=== PATIENT | female | born 1950 | race Caucasian/White ===

== ENCOUNTER → 2017-08-17 09:53 | Outpatient (CLI) | payer MEDICARE, SELFPAY ==
[2017-08-17 10:56] LABS: Erythrocyte Sedimentation Rate 64 mm/hr (0-30)
[2017-08-19 09:57] LABS: Peripheral Smear Review Scanned Result
== END ==
PROVIDERS: Visit Provider Family Medicine
DX: R70.0 Elevated erythrocyte sedimentation rate (principal); D64.9 Anemia, unspecified
CPT/HCPCS: 36415; 85651

== ENCOUNTER → 2018-01-31 14:32 | Outpatient (POV) | payer MEDICARE, SELFPAY | PROVIDERS: PCP Family Medicine | DX: Z00.00 Encounter for general adult medical examination without abnormal findings (principal) ==

== ENCOUNTER → 2018-02-07 13:34 | Outpatient (POV) | payer MEDICARE, SELFPAY | PROVIDERS: PCP Family Medicine | DX: Z00.00 Encounter for general adult medical examination without abnormal findings (principal) ==

== ENCOUNTER → 2018-08-20 15:13 | Outpatient (POV) | payer MEDICARE, SELFPAY | PROVIDERS: Visit Provider Nurse Practitioner Acute Care | DX: Z00.00 Encounter for general adult medical examination without abnormal findings (principal) ==

== ENCOUNTER 2018-11-27 09:00 | Outpatient (RCR) | payer MEDICARE, SELFPAY ==
--- NOTE | 2018-11-07 17:35 | HMH.PTOPEV ---
PT Outpatient Evaluation Rehab PT Outpatient Evaluation Start: 11/07/18 16:38 Freq: Status: Active Protocol: Document 11/07/18 16:38 MELITON (Rec: 11/07/18 17:35 NAVEENGURVINDER [id number]) Electronically Signed By Reno Perez, PT 11/07/18 16:38 Outpatient Therapy Subjective History Subjective History Patient is a 68 year old female presenting to outpatient PT with reports of chronic bilateral cervical spine pain of insidious onset starting approximately 1 year ago. Most recent diagnostics indicate multi-level DDD per patient report. Her main complaint is pain with cervical rotation R=L causing difficulty with driving and reading/desk work. Pt reports hx of BUE vascular issues which required bypass surgery 08/10/18. Comorbidities include giant cell arteritis/vascular disease. Did not perform MMT secondary to BUE bypass surgery. Pt reports intermittent numbness in bilateral hands not associated with onset of cervical pain. Chief Complaint Pain Symptom Type Ache Symptoms Relieved By Rest/Positioning,Prescription Meds Symptoms Aggravated By Physical Activity Prior Functional Limitations None Current Functional Limitations Desk Work/Reading,Driving Symptom Description Intermittent Level of pain today (0-10) 0 Pain scale - at its best (0-10) 0 Pain scale - at its worst (0-10) 4 Cervical Eval Palpation Cervical Muscles R Cervical Paraspinal,L Cervical Paraspinal,R CT Junction,L CT Junction,R Upper Trapezius,L Upper Trapezius Cervical/Thoracic Palpation Findings Tenderness Posture Head/C-Spine Posture Sitting Position C-Spine Flattened Flexibility Deficits Upper Trapezius Muscle Length (R) Mild Tightness,(L) Mild Tightness Levaetor Scapulae Muscle Length (R) Mild Tightness,(L) Mild Tightness Scalene Group Muscle Length (R) Mild Tightness,(L) Mild Tightness,(R) Moderate Tightness,(L) Moderate Tightness
== END 2018-11-27 09:05 | disposition home or self-care (01) ==
LOC: PT 09:00
PROVIDERS: Visit Provider Family Medicine
DX: M50.30 Other cervical disc degeneration, unspecified cervical region (principal); M53.82 Other specified dorsopathies, cervical region
CPT/HCPCS: 97110; 97163

== ENCOUNTER 2019-01-22 09:00 | Outpatient (RCR) | payer MEDICARE, SELFPAY ==
--- NOTE | 2019-01-15 11:51 | HMH.SLVOIC ---
Speech & Language Evaluation Speech/Language Voice Evaluation Start: 01/15/19 10:57 Freq: once Status: Complete Protocol: Document 01/15/19 10:57 ODALIS (Rec: 01/15/19 11:51 ODALIS [id number]) Voice Assessment/Goals/Plan Assessment/Problems Date of Evaluation: 01/15/19 Assessment/Problems Bowing of vocal cord Does Patient Qualify for Service Yes Qualify/Failure Comment Patient exhibits breathy vocal quality and dipliphonia while speaking Recommendations Pt will be seen # times/week 1 for # weeks 6 Plan Anticipate reaching STG in # weeks 4 Anticipate reaching LTG in # weeks 6 Pt/Guardian verbally ack understanding Yes of dx/prognosis/goals G -code Required Yes G-CODES ST Current Status [id number] ST Current Status Modifier CJ-At least 20% but less than 40% impaired, limited or restricted ST Goal Status [id number] ST Goal Status Modifier CI-At least 1% but less than 20% impaired, limited or restricted Short Term Goals Use easy initiation of phonation for Yes prod of best voice 8/10 trials Sustain phonation of 'ah' at comf. pitch 20 8/10 trials # secs Inc loudness level wo inc pitch 8/10 Yes trials Inc easy initial of phonation using best Yes vocal quality habitually 8/10 Residential Goals Improve overall quality to increase/ Yes improve communication with family/ friends. SL Voice & Resonance Eval Communication/Cognition Orientation Name,Place,Day,Date,Year Ablility to follow commands 2-step commands Intelligibility Fair Barriers to Communication Breathy vocal quality Oral-Motor Structure/Function Structure/Function Yes: Buccal Labial Lingual Mandibular Velar Facial Symmetry Symmetrical Laryngeal Function STRNG: Throat Clearing WEAK: Voluntary Cough Dentition Good Dentition Resp Status/History Resp status/hx a concern? Yes Oxygen Delivery Method Room Air Mouth breather No Hx multiple intubations x 12 Most recent extubation date 08/10/18 Voice Voice Pitch Moderately High Voice Loudness Moderately Soft/Quiet Voice Phonatory-based Quality Breathy,Shrill Sustain AH #secs (15-20=NML) 14.6 Sustain S #secs (20-25=NML) 12.01
== END 2019-01-22 09:05 | disposition home or self-care (01) ==
LOC: ST 09:00
PROVIDERS: Visit Provider Otolaryngology
DX: J38.3 Other diseases of vocal cords (principal)
CPT/HCPCS: 92507; 92524

== ENCOUNTER → 2019-02-25 16:46 | Outpatient (CLI) | payer MEDICARE, SELFPAY ==
--- NOTE | 2019-02-25 16:51 | MM_ITS ---
PROCEDURE: MM DIG SCREENING MAMM BI W/CAD CLINICAL INDICATION: SCREENING There is no personal or family history of breast cancer. COMPARISON: DMDXUAVR DIG MAMM-DX UNI ADD VIEWS-RT from 09/14/2015 DMSB DIG MAMM-SCREEN DIAMOND W/CAD from 09/08/2016 DMDXUAVL DIG MAMM-DX UNI A/VWS-LT W/CAD from 10/26/2016 TECHNIQUE: Standard CC and MLO images were obtained. R2 CAD reviewed. FINDINGS: There is mildly dense and heterogenic parenchymal pattern somewhat lessening the sensitivity of mammography. There is stable nodularity in the left breast centrally there is a biopsy clip left breast. There is no new or suspicious lesion in either breast and no suspicious microcalcifications. IMPRESSION: Diffusely dense parenchymal pattern with no suspicious lesions seen BI-RAD Category: 2 Benign Finding(s) FOLLOW-UP: 1YR 1 Year Follow-up (A letter has been sent to the patient regarding results of the study.) Dictated by: Dr. Michele Lindsey MD 02/27/2019 08:[address] Michele Lindsey MD in [facility] 02/27/2019 08:36
== END ==
PROVIDERS: PCP Obstetrics & Gynecology; Visit Provider Obstetrics & Gynecology
DX: Z12.31 Encounter for screening mammogram for malignant neoplasm of breast (principal)
CPT/HCPCS: 77067

== ENCOUNTER 2019-06-13 11:00 | Outpatient (RCR) | payer MEDICARE, SELFPAY | END 2019-06-13 11:05 | disposition home or self-care (01) | LOC: PT 11:00 | PROVIDERS: PCP Obstetrics & Gynecology; Visit Provider Podiatrist Foot & Ankle Surgery | DX: M76.61 Achilles tendinitis, right leg (principal) | CPT/HCPCS: 97010; 97014; 97033; 97035; 97110; 97163; G0283 ==

== ENCOUNTER → 2019-07-31 14:10 | Outpatient (POV) | payer MEDICARE, SELFPAY | DX: Z00.00 Encounter for general adult medical examination without abnormal findings (principal) ==

== ENCOUNTER → 2019-08-07 14:58 | Outpatient (POV) | payer MEDICARE, SELFPAY | DX: Z00.00 Encounter for general adult medical examination without abnormal findings (principal) ==

== ENCOUNTER → 2019-08-07 15:00 | Outpatient (POV) | payer MEDICARE, SELFPAY | DX: Z00.00 Encounter for general adult medical examination without abnormal findings (principal) ==

== ENCOUNTER → 2019-08-21 15:37 | Outpatient (POV) | payer MEDICARE, SELFPAY | DX: Z00.00 Encounter for general adult medical examination without abnormal findings (principal) ==

== ENCOUNTER → 2019-10-02 14:03 | Outpatient (POV) | payer MEDICARE, SELFPAY | PROVIDERS: PCP Family Medicine | DX: Z00.00 Encounter for general adult medical examination without abnormal findings (principal) ==

== ENCOUNTER → 2019-12-04 15:08 | Outpatient (POV) | payer MEDICARE, SELFPAY | PROVIDERS: PCP Family Medicine | DX: Z00.00 Encounter for general adult medical examination without abnormal findings (principal) ==

== ENCOUNTER → 2020-01-10 10:14 | Outpatient (CLI) | payer MEDICARE, SELFPAY ==
[2020-01-10 10:54] LABS: Basophils # 0.1 K/mm3 (0-0.2); Basophils % 0.8 % (0.1-2.0); Eosinophils # 0.1 K/mm3 (0.0-0.4); Eosinophils % 1.5 % (0.1-12.0); Hematocrit 39.5 % (37.0-47.0); Hemoglobin 12.9 g/dL (12.2-16.2); Lymphocytes # 2.8 K/mm3 (0.7-4.5); Mean Corpuscular HGB Conc 32.8 g/dL (31.8-35.4); Mean Corpuscular Hemoglobin 28.8 pg (27.0-31.2); Mean Corpuscular Volume 87.8 fl (81-99); Mean Platelet Volume 7.9 fl (7.4-10.4); Monocytes # 0.3 K/mm3 (0.1-1.0); Monocytes % 3.4 % (1.7-9.3); Neutrophils % 64.3 % (37.0-80.0); Platelet Count 346 K/mm3 (142-424); Red Blood Count 4.49 M/mm3 (4.20-5.40); Red Cell Distribution Width 13.3 % (11.5-17.5); White Blood Count 9.3 K/mm3 (4.8-10.8)
[2020-01-10 11:32] LABS: INR 0.96 (0.9-1.1); Prothrombin Time 9.9 seconds (9.4-11.8)
[2020-01-10 12:08] LABS: Chloride 103 mmol/L (98-107); Potassium 4.4 mmoL/L (3.5-5.1); Sodium 137 mmol/L (136-145)
[2020-01-10 12:10] LABS: Blood Urea Nitrogen 11 mg/dl (7-17); Estimated Glomerular Filt Rate 83 ml/min (>60); GFR (African American) 101 ML/MIN (>60)
[2020-01-10 12:11] LABS: Anion Gap 17.4 mEq/L (5-15); Carbon Dioxide 21 mmol/L (22.0-30.0); Glucose 100 mg/dl (74-100)
== END ==
PROVIDERS: Visit Provider Family Medicine
DX: Z01.818 Encounter for other preprocedural examination (principal); Z51.81 Encounter for therapeutic drug level monitoring
CPT/HCPCS: 36415; 80048; 85025; 85610; 85730

== ENCOUNTER → 2020-01-29 13:01 | Outpatient (POV) | payer MEDICARE, SELFPAY | DX: Z00.00 Encounter for general adult medical examination without abnormal findings (principal) ==

== ENCOUNTER → 2020-02-05 13:35 | Outpatient (POV) | payer MEDICARE, SELFPAY | DX: Z00.00 Encounter for general adult medical examination without abnormal findings (principal) ==

== ENCOUNTER → 2020-03-11 13:49 | Outpatient (POV) | payer MEDICARE, SELFPAY | DX: Z00.00 Encounter for general adult medical examination without abnormal findings (principal) ==

== ENCOUNTER → 2020-08-18 13:17 | Outpatient (CLI) | payer MEDICARE, SELFPAY ==
--- NOTE | 2020-08-18 13:20 | MM_ITS ---
PROCEDURE: MM DIG SCREENING MAMM BI W/CAD Digital Breast Tomosynthesis Included CLINICAL INDICATION: SCREENING There is no personal or family history of breast cancer. There has been previous biopsy on each breast for benign disease. COMPARISON: MG DMSB DIG MAMM-SCREEN DIAMOND W/CAD from 09/08/2016 MG DMDXUAVL DIG MAMM-DX UNI A/VWS-LT W/CAD from 10/26/2016 MG MM DIG SCREENING MAMM BI W/CAD from 02/25/2019 TECHNIQUE: Standard CC and MLO images and 3D Tomosynthesis was obtained. R2 CAD reviewed. FINDINGS: Moderate somewhat heterogenic fibroglandular densities are seen in the central portions of both breasts. There is a biopsy clip left breast. Minimal post biopsy scarring near the deep of the 2 biopsy clips left breast. There are couple of benign-appearing calcifications left breast. There are stable small nodular lesions central portion left breast. There is no suspicious lesion and no suspicious microcalcifications. IMPRESSION: Stable exam with no suspicious lesions seen BI-RAD Category: 2 Benign Finding(s) FOLLOW-UP: 1YR 1 Year Follow-up (A letter has been sent to the patient regarding results of the study.) Dictated by: Dr. Michele Lindsey MD 08/23/2020 14:03 Dr. Michele Lindsey MD in [facility] 08/23/2020 14:03
--- NOTE | 2020-08-18 13:21 | XR_ITS ---
PROCEDURE: XR DEXA AXIAL SKELETON CLINICAL HISTORY: POST MENOPAUSAL COMPARISON: No exams were available for comparison FINDINGS: The right hip BMD is 0.808 with a T-score of -0.4. The left hip BMD is 0.834 with a T-score of -0.9. The lumbar spine BMD is 1.048 with a T-score of 0.0. IMPRESSION: This patient is considered normal according to the World Health Organization criteria. Fracture risk is low. Based on these results a follow-up exam is recommended in 2 year. Dictated by: Jovanny Roy MD 08/18/2020 20:38 Jovanny Roy MD in [facility] 08/19/2020 06:54
== END ==
PROVIDERS: PCP Family Medicine; Visit Provider Physician Assistant
DX: Z12.31 Encounter for screening mammogram for malignant neoplasm of breast (principal); Z78.0 Asymptomatic menopausal state
CPT/HCPCS: 77063; 77067; 77080

== ENCOUNTER → 2020-12-16 13:47 | Outpatient (POV) | payer MEDICARE, SELFPAY | DX: Z00.00 Encounter for general adult medical examination without abnormal findings (principal) ==

== ENCOUNTER → 2021-02-16 10:37 | Outpatient (CLI) | payer MEDICARE, SELFPAY ==
--- NOTE | 2021-02-16 10:40 | US_ITS ---
PROCEDURE: US EXTREMITY RT LIMITED CLINICAL INDICATION: GROIN PAIN RT COMPARISON: No exams were available for comparison FINDINGS: There are few small lymph nodes in the right groin. No enlarged nodes are evident. No abnormal fluid collection. No bowel containing hernia evident. IMPRESSION: Unremarkable ultrasound of the right groin Dictated by: Jovanny Roy MD 02/16/2021 12:31 Jovanny Roy MD in [facility] 02/16/2021 12:31
--- NOTE | 2021-02-16 10:42 | XR_ITS ---
PROCEDURE: XR HIP RT 2-3V W/PELVIS CLINICAL INDICATION: HIP PAIN ,RT COMPARISON: No exams were available for comparison FINDINGS: AP view of the pelvis shows bilateral osteoarthritic changes of the hips. No acute fracture or dislocation is evident. No lytic or blastic change. Hypertrophic changes are present involving the lateral aspect of the acetabular roof on both sides right slightly greater than left. This could result and femoral acetabular impingement in the appropriate clinical setting. IMPRESSION: Mild osteoarthritic changes of the hips with prominent hypertrophic changes along the lateral aspect of the acetabular roof on both sides slow right slightly greater than Dictated by: Jovanny Roy MD 02/16/2021 11:39 Jovanny Roy MD in [facility] 02/16/2021 11:39
== END ==
PROVIDERS: PCP Family Medicine; Visit Provider Nurse Practitioner Family
DX: M25.551 Pain in right hip (principal); R10.31 Right lower quadrant pain
CPT/HCPCS: 73502; 76882

== ENCOUNTER 2021-05-03 12:34 | Emergency (ER) | payer MEDICARE, SELFPAY ==
[2021-05-03] VITALS (21 sets, daily range): BP systolic 145–202; BP diastolic 58–91; PULSE 74–88; RESP 17–20; TEMP 37.1; O2SAT 95–98; BMI 29.9
--- NOTE | 2021-05-03 12:31 | ECG_ITS ---
APPROVED REPORT Exam: Resting ECG HR:86 bpm ECG Measurements Heart Rate 86 AXES IA 124 P 46 QRSd 134 QRS 26 QT 382 T 6 QTc 457 Conclusion Normal sinus rhythm Right bundle branch block Abnormal ECG Electronically signed by : Lavell Stephen MD 05/04/2021 12:17:11
--- NOTE | 2021-05-03 13:08 | CT_ITS ---
Procedure: CT ANGIO UE LT CLINICAL HISTORY: pain, multiple vascular surgery, hx giant cell art COMPARISON: No exams were available for comparison TECHNIQUE: IV Contrast: 100ml Isovue 370 Axial images obtained with sagittal and coronal reformats. All CT scans at the facility use one or more dose reduction, viz: automated exposure control, ma/kV adjustment per patient size (including targeted exams where dose is matched to indication, i.e. head), or iterative reconstruction technique. FINDINGS: The aortic arch has an unremarkable appearance. Distal to the origin of the left vertebral artery there is some luminal irregularity the left subclavian artery with approximately 25 percent narrowing. There is occlusion the left axillary artery at its origin from the subclavian artery with a prominent circumflex artery which may also be occluded distally. There is reconstitution of the proximal aspect of the left brachial artery at the proximal humeral region. Numerous collateral vessels are present in the arm. Surgical clips are present in the left axillary region and distal humeral area. A mildly prominent vascular structure is present near the region of the proximal surgical clips and may represent a vein graft. This does not appear patent to the distal aspect of the clips at the mid humeral region. There is a mild amount of edema in the left axillary region. There is some nonspecific areas of enhancement in the left biceps muscle possibly due to some venous puddling. IMPRESSION: 1. Occlusion of the left axillary artery with reconstitution of the brachial artery in its mid aspect. 2. Postsurgical changes in the left axilla suspected prior graft placement which does not appear patent. Please correlate with patient's surgical history. 3. Mild amount of edema in the left axillary region. Dictated by: Jovanny Roy MD 05/03/2021 15:58 Jovanny Roy MD in [facility] 05/03/2021 15:58
--- NOTE | 2021-05-03 13:08 | XR_ITS ---
PROCEDURE: XR CHEST PORTABLE CLINICAL HISTORY: chest pain COMPARISON: CR CXR CHEST(2 VIEWS-NOT PORTABLE) from 08/04/2016 FINDINGS: The cardiomediastinal silhouette and pulmonary vascularity are within normal limits. The lungs are clear without infiltrates, suspicious nodules, or pleural effusions. Surgical clips are present in the left axillary region. IMPRESSION: No acute findings. Dictated by: Jovanny Roy MD 05/03/2021 17:02 Jovanny Roy MD in [facility] 05/03/2021 17:02
--- NOTE | 2021-05-03 13:12 | CT_ITS ---
PROCEDURE: CT ANGIO CHEST PE PROTOCOL CLINCIAL INDICATION: chest pain, new rbbb COMPARISON: No exams were available for comparison TECHNIQUE: IV Contrast: 70ML Isovue 370 Axial images obtained with sagittal and coronal reformats. All CT scans at the facility use one or more dose reduction, viz: automated exposure control, ma/kV adjustment per patient size (including targeted exams where dose is matched to indication, i.e. head), or iterative reconstruction technique. FINDINGS: HEART AND MEDIASTINAL STRUCTURES: No evidence of pulmonary embolus or aortic aneurysm. Part of the main pulmonary artery is obscured by motion artifact. No mediastinal or hilar mass or adenopathy. LUNGS AND PLEURAL SPACES: In the right apex there is a 3 mm subpleural nodule. 2 mm nodule present in the left apex. Mosaic attenuation noted in the lower lobes nonspecific. Some of this may be due to dependent changes. BONY STRUCTURES: Degenerative changes thoracic spine with thoracic scoliosis convex right.. UPPER ABDOMEN: Hiatal hernia. Fatty liver ADDITIONAL FINDINGS: Surgical clips are present in the left axilla. There is occlusion the left axillary artery. There is a prominent left circumflex scapular artery. There is edema in the left axillary region. IMPRESSION: 1. No definite pulmonary embolus. The main pulmonary artery is somewhat obscured secondary to motion artifact. 2. Mosaic attenuation in the lower lobes. This is nonspecific and may be seen with small airway disease, edema, or infection. 3. Hiatal hernia 4. Occluded left brachial artery proximally Dictated by: Jovanny Roy MD 05/03/2021 15:35 Jovanny Roy MD in [facility] 05/03/2021 15:35
--- NOTE | 2021-05-03 13:16 | HMH.EDGENADL ---
ED Disposition Clinical Impression: Peripheral arterial occlusive disease Disposition: Xfer Short-Term Hosp Condition on Discharge: Fair Referrals: Gabe Perry MD [Primary Care Provider] - - Critical Care Critical Care Time: No Attestation: On 05/03/21, the high probability of a clinically significant, sudden or life threatening deterioration of the following system(s) required my full and direct attention, intervention and personal management. The time I documented below is in addition to time spent performing reported procedures but includes the following listed in this critical care notation. Medical Decision Making - Francisco Inquiry Pt receiving controlled substance: No Vital Signs: 05/03/21 12:36 05/03/21 13:20 05/03/21 14:07 Temperature 98.8 F Temperature Source Oral Pulse Rate 78 75 Pulse Rate [Left Radial] 88 Respiratory Rate 18 18 17 Blood Pressure 154/69 H 151/63 H Blood Pressure [Right Arm] 190/85 H Blood Pressure Mean [Right Arm] 120 Blood Pressure Source Manual Cuff/ Doppler Automatic Cuff Blood Pressure Source [Right Arm] Automatic Cuff Blood Pressure Position Sitting Sitting Blood Pressure Position [Right Arm] Sitting 02 Sat by Pulse Oximetry 97 96 97 Oxygen Delivery Method Room Air Room Air Room Air - Lab Data Lab Results 05/03/21 12:40: WBC 7.4, RBC 3.96 L, Hgb 11.2 L, Hct 34.2 L, MCV 86.5, MCH 28.2, MCHC 32.7, RDW 14.3, Plt Count 424, MPV 8.7, Neut % (Auto) 52.8, Lymph % (Auto) 40.2, Scurry % (Auto) 4.0, Eos % (Auto) 2.1, Baso % (Auto) 0.9, Neut # (Auto) 3.9, Lymph # (Auto) 3.0, Scurry # (Auto) 0.3, Eos # (Auto) 0.2, Baso # (Auto) 0.1 05/03/21 12:40: Sodium 137, Potassium 4.4, Chloride 105, Carbon Dioxide 26, Anion Gap 10.4, BUN 17, Creatinine 0.70, Estimated Creat Clear 69, Estimated GFR 83, Est GFR ( Amer) 101, Glucose 112 H, Calcium 9.1, Troponin I < 0.01 Result diagrams: 05/03/21 12:40 05/03/21 12:40 Orders (Tests/Meds): ED MEDICATIONS Generic Name Dose Route Start Last Admin Trade Name Freq PRN Reason Stop Dose Admin Heparin Sodium/Dextrose 500 mls @ 20 mls/hr 05/03/21 17:15 Heparin 25,000 Units In D5w 500ml Premix IV 06/02/21 17:14 .Q25H TOM 1,000 UNITS/HR Discontinued Medications Generic Name Dose Route Start Last Admin Trade Name Freq PRN Reason Stop Dose Admin Heparin Sodium (Porcine) 5,000 unit 05/03/21 16:59 Heparin Sodium 5,000 Unit/Ml Vial IV 05/03/21 17:00 ONCE ONE Iopamidol 100 ml 05/03/21 14:46 05/03/21 14:48 Iopamidol-370 (76%);100ml Bottle IV 05/03/21 14:47 100 ml ONCE ONE Administration Morphine Sulfate 4 mg 05/03/21 13:12 05/03/21 13:21 Morphine 4mg/Ml Syringe IV 05/03/21 13:13 4 mg ONCE ONE Administration Sodium Chloride 50 ml 05/03/21 14:46 05/03/21 14:48 0.9 % Sodium Chloride 50 Ml Vial IV 05/03/21 14:47 50 ml ONCE ONE Administration Sodium Chloride 10 ml 05/03/21 14:46 05/03/21 14:48 Sodium Chloride 0.9% 10ml Syr (Rad Only) IV 05/03/21 14:47 10 ml ONCE ONE Administration Sodium Chloride 50 ml 05/03/21 14:47 05/03/21 14:48 0.9 % Sodium Chloride 50 Ml Vial IV 05/03/21 14:48 50 ml ONCE ONE Administration ORDERS Category Date Time Status XR chest portable Stat Exams 05/03/21 13:08 Taken Rapid PCR Covid and Flu A/B Stat Lab 05/03/21 16:50 Ordered Troponin I Q3H Lab 05/03/21 16:17 Received Troponin I Q3H Lab 05/03/21 19:15 Ordered Medical Decision Narrative: DDx includes but not limited to peripheral arterial occlusion, ACS, thoracic aortic dissection. HDS, NAD, well appearing. With pulse deficit on left radial compared to right, however left upper extremity is warm to touch, dry, not mottled. Patient does report persistent acute pain and tingling in the LUE throughout ED course. CT imaging reveals left axillary artery occlusion with possible nonpatency of nearby vein graft. Discussed results and workup with patient and she
[2021-05-03 13:19] LABS: Basophils # 0.1 K/mm3 (0-0.2); Basophils % 0.9 % (0.1-2.0); Eosinophils # 0.2 K/mm3 (0.0-0.4); Eosinophils % 2.1 % (0.1-12.0); Hematocrit 34.2 % (37.0-47.0); Hemoglobin 11.2 g/dL (12.2-16.2); Lymphocytes % 40.2 % (10-50); Mean Corpuscular HGB Conc 32.7 g/dL (31.8-35.4); Mean Corpuscular Hemoglobin 28.2 pg (27.0-31.2); Mean Corpuscular Volume 86.5 fl (81-99); Mean Platelet Volume 8.7 fl (7.4-10.4); Monocytes # 0.3 K/mm3 (0.1-1.0); Neutrophils # 3.9 K/mm3 (1.8-7.8); Neutrophils % 52.8 % (37.0-80.0); Platelet Count 424 K/mm3 (142-424); Red Blood Count 3.96 M/mm3 (4.20-5.40); Red Cell Distribution Width 14.3 % (11.5-17.5); White Blood Count 7.4 K/mm3 (4.8-10.8)
[2021-05-03 13:25] LABS: Chloride 105 mmol/L (98-107); Sodium 137 mmol/L (136-145)
[2021-05-03 13:26] LABS: Potassium 4.4 mmoL/L (3.5-5.1)
[2021-05-03 13:29] LABS: Anion Gap 10.4 mEq/L (5-15); Blood Urea Nitrogen 17 mg/dl (7-17); Calcium 9.1 mg/dl (8.4-10.2); Carbon Dioxide 26 mmol/L (22.0-30.0); Creatinine Clearance Estimated 69 mL/min (50-200); Estimated Glomerular Filt Rate 83 ml/min (>60); GFR (African American) 101 ML/MIN (>60); Glucose 112 mg/dl (74-100)
[2021-05-03 13:44] LABS: Troponin I < 0.01 ng/ml (0.00-0.034)
--- NOTE | 2021-05-03 16:49 | PC.NURSE ---
vascular surgery paged at [facility], awaiting return call
--- NOTE | 2021-05-03 16:54 | PC.NURSE ---
speaking with [facility]
--- NOTE | 2021-05-03 16:59 | PC.NURSE ---
DR ASHLEY JUST SPOKE WITH VASCULAR AT [facility] HE HAS AGREED TO CONSULT ON PT WE ARE NOW WAITING ON A CALL BACK FROM THE HOSPITALIST
[2021-05-03 17:09] LABS: Coronavirus 19, PCR Not Detected (NotDetected); Influenza A, PCR Not Detected (NotDetected); Influenza B, PCR Not Detected (NotDetected)
[2021-05-03 17:12] LABS: Troponin I < 0.01 ng/ml (0.00-0.034)
--- NOTE | 2021-05-03 17:19 | PC.NURSE ---
PT HS BEEN ACCEPTED AT [facility] BY DR WADE , THEY WILL CALL BACK WHEN BED IS AVAILABLE
--- NOTE | 2021-05-03 17:52 | PC.NURSE ---
Spoke with shoshana at [facility]. She said assignment is [facility] main unit [facility] phone number for report [phone]. Fax facesheet to [phone].
--- NOTE | 2021-05-03 18:12 | PC.NURSE ---
[facility] notified of transfer to [facility]
== END 2021-05-03 18:41 | disposition short-term general hospital (02) ==
PROVIDERS: Emergency Provider Student in an Organized Health Care Education/Training Program; PCP Family Medicine
DX: R07.89 Other chest pain (principal); I77.9 Disorder of arteries and arterioles, unspecified; E03.9 Hypothyroidism, unspecified; K21.9 Gastro-esophageal reflux disease without esophagitis; E78.5 Hyperlipidemia, unspecified; I10 Essential (primary) hypertension; Z79.899 Other long term (current) drug therapy
CPT/HCPCS: 36415; 71045; 71275; 73206; 80048; 84484; 85025; 93005; 96365; 96375; 99284; C9803; Q9967; U0003; U0005

== ENCOUNTER → 2021-07-05 08:10 | Outpatient (CLI) | payer MEDICARE, SELFPAY | PROVIDERS: Visit Provider Nurse Practitioner | DX: U07.1 COVID-19 (principal) | CPT/HCPCS: C9803; U0003; U0005 ==

== ENCOUNTER → 2022-10-07 07:38 | Outpatient (CLI) | payer MEDICARE, SELFPAY ==
--- NOTE | 2022-10-07 07:51 | MM_ITS ---
PROCEDURE INFORMATION: Exam: MG Right Screening 3D Mammography Exam date and time: 10/07/2022 7:53 AM Age: 72 years old Clinical indication: Screening examination TECHNIQUE: Imaging protocol: Right Screening tomosynthesis and 2D mammography including computer-aided detection (CAD) when performed. COMPARISON: 1. MG MM DIG SCREENING MAMM BI W/CAD 08/18/2020 1:21 PM 2. MG MM DIG SCREENING MAMM BI W/CAD 02/25/2019 5:01 PM 3. <StartDictation 4. The patient declines a left mammogram due to vascular surgery FINDINGS: MAMMOGRAPHY: Breast composition: The breast is heterogeneously dense, which may obscure small masses. Mass: None. Architectural distortion: None. Calcifications: No suspicious calcifications. Asymmetric density: None. Skin thickening: None. Axillary adenopathy: None. The patient refuses a left mammogram due to vascular surgery IMPRESSION: No mammographic evidence of malignancy. Annual screening is recommended unless otherwise clinically indicated. ASSESSMENT: BI-RADS Category 1: Negative
== END ==
PROVIDERS: PCP Family Medicine; Visit Provider Family Medicine
DX: Z12.31 Encounter for screening mammogram for malignant neoplasm of breast (principal)
CPT/HCPCS: 77063; 77067